=== PATIENT | female | born 1980 | race Caucasian/White ===

== ENCOUNTER 2017-03-14 13:14 | Emergency (ER) | payer OTHER ==
[~2017-03-14] VITALS: Ht 149.9 cm; Wt 62.6 kg
[~2017-03-14 13:14] MED LIST: BACTERICIN30 GM TP; EFFEXOR37.5 MG PO; LAMICTAL100 MG PO; SYMBICORT60 INHALAT IH; ULTRAM50 MG PO
[2017-03-14] MEDS ORDERED: NARCAN4 MG NS (15:13)
[2017-03-14 16:41] VITALS: BP 139/81
== END 2017-03-14 17:21 | disposition home or self-care (01) ==
LOC: EME → EDBD 13:14 → EME 17:21
DX: T40.1X1A Poisoning by heroin, accidental (unintentional), initial encounter (principal); F17.200 Nicotine dependence, unspecified, uncomplicated; Z91.018 Allergy to other foods; J45.909 Unspecified asthma, uncomplicated; F31.9 Bipolar disorder, unspecified
CPT/HCPCS: 99281; 99284; J2310

== ENCOUNTER 2017-07-15 00:38 | Inpatient (IN) | payer OTHER ==
[~2017-07-15] VITALS: Ht 149.9 cm; Wt 58.0 kg
[~2017-07-15 00:38] MED LIST changes: +NARCAN4 MG NS
[2017-07-15 01:28] LABS: HEMATOCRIT 34.9 % (36.0-46.0); MCH 29.7 PG (29.0-34.0); MCHC 35.8 G/DL (30.0-36.0); MCV 82.9 FL (83-99); MEAN PLAT.VOLUME 9.1 uM^3 (9.5-12.4); PLATELET COUNT 323 K/uL (156-360); RBC DIS.WIDTH-CV 13.4 % (11.8-14.6); RED BLOOD COUNT 4.21 M/uL (3.80-5.20); WHITE BLOOD COUNT 12.9 K/uL (4.1-10.2)
[2017-07-15 01:36] LABS: CHLORIDE 105 mEq/L (99-109); POTASSIUM 3.6 mEq/L (3.7-5.4); SODIUM 140 mEq/L (136-147)
[2017-07-15 01:38] LABS: GLUCOSE 118 mg/dL (70-99)
[2017-07-15 01:39] LABS: ANION GAP 11 MEQ/L (2-14)
[2017-07-15 01:41] LABS: SERUM ETHYL ALCOHOL < 10 mg/dL
[2017-07-15 01:42] LABS: GFR ESTIMATE (CALCULATED) > 59 mL/min/
[2017-07-15 01:43] LABS: UREA NITROGEN (BUN) 10 mg/dL (9-23)
[2017-07-15 05:24] VITALS: BP 136/92
[2017-07-15 08:15] VITALS: BP 126/72
[2017-07-15 11:48] LABS: METH RESISTANT S AUREUS PCR NEGATIVE (NEGATIVE)
[2017-07-15 11:56] LABS: PROBE CHECK PASS; SPECIMEN PROCESSING CONTROL PASS
[2017-07-15 12:37] VITALS: BP 138/82
[2017-07-15 14:41] LABS: CREATINE KINASE 655 IU/L (1-294)
[2017-07-15 14:55] LABS: ADD MIUA? YES; BILIRUBIN NEGATIVE; BLOOD NEGATIVE; COLOR YELLOW ((YELLOW)); GLUCOSE (STRIP) NEGATIVE; KETONES NEGATIVE; LEUKOCYTES TRACE; NITRITE NEGATIVE; PROTEIN (STRIP) NEGATIVE; SPECIFIC GRAVITY 1.025 (1.000-1.030); UROBILINOGEN 0.2 MG/DL (0.2-1.0)
[2017-07-15 15:02] LABS: BACTERIA NONE SEEN /HPF; EPITHELIAL CELLS RARE /HPF; MUCUS NONE SEEN /LPF; RED BLOOD CELLS 0-5 /HPF (0-5); WHITE BLOOD CELLS 0-5 /HPF (0-5)
[2017-07-15 15:31] LABS: BARBITUATES QUANT VALUE 0 NG/ML; BENZODIAZEPINES QUANT VALUE 0 NG/ML; BENZODIAZEPINES, URINE SCREEN Negative (200 ng/mL); OPIATES QUANTITATIVE VALUE 0 NG/ML; PHENCYCLIDINE QUANT VALUE 0 NG/ML
[2017-07-15 15:47] VITALS: BP 142/86
[2017-07-15 19:24] VITALS: BP 184/88
[2017-07-15 23:32] VITALS: BP 192/89
[2017-07-16 05:10] VITALS: BP 179/84
[2017-07-16 07:14] LABS: EOSINOPHIL (%) 5.5 % (0-5); EOSINOPHIL COUNT 0.5 K/uL (0-0.3); HEMATOCRIT 34.6 % (36.0-46.0); IMMATURE GRANULOCYTE (%) 0.3 % (0.0-0.7); INSTRUMENT ABS NEUTROPHIL CT 5.5 K/uL; LYMPHOCYTE COUNT 2.7 K/uL (1.0-2.8); MCH 29.9 PG (29.0-34.0); MCHC 34.1 G/DL (30.0-36.0); MCV 87.8 FL (83-99); MEAN PLAT.VOLUME 9.9 uM^3 (9.5-12.4); MONOCYTE (%) 6.8 % (3-12); MONOCYTE COUNT 0.7 K/uL (0-0.8); NEUTROPHIL (%) 58.4 % (45-76); NEUTROPHIL COUNT 5.5 K/uL (1.8-6.4); PLATELET COUNT 279 K/uL (156-360); RBC DIS.WIDTH-CV 14.3 % (11.8-14.6); RBC DIS.WIDTH-SD 45.4 % (39-53); RED BLOOD COUNT 3.94 M/uL (3.80-5.20); WHITE BLOOD COUNT 9.5 K/uL (4.1-10.2)
[2017-07-16 07:22] LABS: ANION GAP 7 MEQ/L (2-14); CHLORIDE 115 MEQ/L (99-109); POTASSIUM 3.9 MEQ/L (3.7-5.4); SAMPLE HEMOLYSIS CHECK 0; SAMPLE ICTERIC CHECK 0; SAMPLE LIPEMIA CHECK 0; SODIUM 143 MEQ/L (136-147)
[2017-07-16 07:27] LABS: GFR ESTIMATE (CALCULATED) > 59 mL/min/; GLUCOSE 94 mg/dL (70-99); UREA NITROGEN (BUN) 3 mg/dL (9-23)
[2017-07-16] MEDS ORDERED: NICODERM CQ1 EAC2 TD (09:04)
[2017-07-16] MEDS ORDERED: ADDERALL XR 2525 MG PO (09:04)
[2017-07-16] MEDS ORDERED: SAPHRIS10 MG SL (09:05)
[2017-07-16] MEDS ORDERED: LAMICTAL XR300 MG PO (09:05)
[2017-07-16 10:05] LABS: HBSG INDEX 0.23
[2017-07-16 10:09] LABS: HPCA INDEX 8.66
[2017-07-16 15:38] VITALS: BP 160/92
[2017-07-16 23:17] VITALS: BP 149/90
[2017-07-18 07:55] VITALS: BP 175/85
[2017-07-19 01:32] VITALS: BP 160/88
[2017-07-19 08:29] VITALS: BP 163/96
[2017-07-19] MEDS ORDERED: BACTRIM,SEPT1 TABLET PO (11:42)
[2017-08-04 13:02] LABS: RESEND RESULTS RESEND RESULTS
== END 2017-07-19 11:48 | disposition home or self-care (01) | DRG 603 ==
LOC: EME 00:38 → 3EAST 03:21 → EDOF 03:21 → CANRESERV 03:25 → ENRESERV 03:25 → 3EAST 05:22
PROVIDERS: Emergency Medicine; Hospitalist; Internal Medicine Infectious Disease
DX: L03.113 Cellulitis of right upper limb (principal); I80.8 Phlebitis and thrombophlebitis of other sites; F17.210 Nicotine dependence, cigarettes, uncomplicated; F31.9 Bipolar disorder, unspecified; B19.20 Unspecified viral hepatitis C without hepatic coma; B95.61 Methicillin susceptible Staphylococcus aureus infection as the cause of diseases classified elsewhere; F11.10 Opioid abuse, uncomplicated; F14.10 Cocaine abuse, uncomplicated; Z86.14 Personal history of Methicillin resistant Staphylococcus aureus infection; L27.1 Localized skin eruption due to drugs and medicaments taken internally; T36.1X5A Adverse effect of cephalosporins and other beta-lactam antibiotics, initial encounter; Y92.239 Unspecified place in hospital as the place of occurrence of the external cause; J44.9 Chronic obstructive pulmonary disease, unspecified
CPT/HCPCS: 73201; 80048; 80202; 80306 90; 81003; 82550; 82550 91; 83605; 85025; 85027; 86803; 87040; 87070; 87075; 87077; 87147; 87186; 87205; 87340; 87522 90; 87641; 93971; 99281; 99283; G0480; J0690; J0696; J1650; J1885; J1956; J3370; J7030; J7050; Q0177